=== PATIENT | male | born 1990 ===

== ENCOUNTER 2020-11-09 20:38 | Emergency (ER) | payer BC ==
--- NOTE | 2020-11-09 21:30 | EDM.PDOC ---
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 Was seen by Dr Onesimo Hudson this am, given desmopressin . Presents now with report of increased sensaton of fullness in area and discomfort with walking. No obvious swelling or bruising in alice. Left Upper Leg Pain Score (Numeric/FACES): 8 - Related Data Allergies Allergy/AdvReac Type Severity Reaction Status Date / Time No Known Allergies Allergy Verified 11/09/20 21:15 ED ROS GENERAL - Review of Systems Review Of Systems: Comprehensive ROS is negative, except as noted in HPI. ED EXAM, GENERAL - Physical Exam Exam: See Below Exam Limited By: No Limitations General Appearance: Alert, Anxious, Mild Distress Ears: Normal External Exam Nose: Normal Inspection Throat/Mouth: Normal Inspection Head: Atraumatic, Normocephalic Neck: Normal Inspection Respiratory/Chest: No Respiratory Distress, Normal Breath Sounds Cardiovascular: Regular Rate, Rhythm Back Exam: Normal Inspection Extremities: Other (tender to palpation left inguinal area and upper left thigh) Neurological: Alert, Oriented Psychiatric: Normal Affect Skin Exam: Warm, Dry, Intact, Normal Color Course - Vital Signs Last Recorded V/S: Last Vital Signs Temp 98.8 F 11/09/20 21:08 Pulse 92 11/09/20 21:59 Resp 16 11/09/20 21:59 BP 128/88 11/09/20 21:59 Pulse Ox 100 11/09/20 21:59 - Orders/Labs/Meds Labs: Laboratory Tests 11/09/20 11/09/20 11/09/20 Range/Units 21:36 21:36 21:36 WBC 10.1 H (5.0-10.0) 10^3/uL RBC 6.11 (4.6-6.2) 10^6/uL Hgb 16.9 (14.0-18.0) g/dL Hct 49.7 (40.0-54.0) % MCV 81.3 (80-100) fL MCH 27.7 (27.0-34.0) pg MCHC 34.0 (33.0-35.0) g/dL Plt Count 309 (150-450) 10^3/uL Neut % (Auto) 60.8 (42.2-75.2) % Lymph % (Auto) 28.1 (20.5-50.1) % [place] % (Auto) 9.2 H (2-8) % Eos % (Auto) 1.6 (1.0-3.0) % Baso % (Auto) 0.3 (0.0-1.0) % PT 10.3 (9.0-12.0) SEC INR 1.0 (0.9-1.2) APTT 69.3 H (22.0-34.0) SEC Sodium 139 (136-145) mmol/L Potassium 3.8 (3.5-5.1) mmol/L Chloride 101 (98-107) mmol/L Carbon Dioxide 31 (21-32) mmol/L Anion Gap 10.8 (7-13) mEq/L BUN 23 H (7-18) mg/dL Creatinine 0.88 (0.70-1.30) mg/dL Est Cr Clr Drug Dosing 111.77 mL/min Estimated GFR (MDRD) > 60 BUN/Creatinine Ratio 26.1 (No establ ref range) Glucose 97 (70-99) mg/dL Calcium 8.4 L (8.5-10.1) mg/dL Total Bilirubin 0.6 (0.2-1.0) mg/dL AST 12 L (15-37) U/L ALT 20 (16-63) U/L Alkaline Phosphatase 67 (46-116) U/L Total Protein 7.6 (6.4-8.2) g/dL Albumin 4.1 (3.4-5.0) g/dL Globulin 3.5 Albumin/Globulin Ratio 1.2 - Re-Assessments/Exams Free Text/Narrative Re-Assessment/Exam: 11/09/20 21:30 Factor VIII unavailable here. TC Dr Yanez ED accepting patient for tx. Patient refuses tx via ambulance he will go with friend to [facility] via private vehicle 11/10/20 03:12 TC to [facility] ED confirmed patient did arrive at their facility. 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
[2020-11-09 22:00] LABS: ANION GAP 10.8 mEq/L (7-13); CHLORIDE,CL 101 mmol/L (98-107); SODIUM,NA 139 mmol/L (136-145)
[2020-11-09 22:32] LABS: PTT,PARTIAL THROMBOPLSTIN TIME 69.3 SEC (22.0-34.0)
== END 2020-11-09 22:00 ==
LOC: DL.ED 20:38
DX: D66 Hereditary factor VIII deficiency (principal)
CPT/HCPCS: 36415; 80053; 85025; 85610; 85730; 99284

== ENCOUNTER 2024-10-20 23:33 | Emergency (ER) | payer BC ==
[2024-10-21] MEDS ORDERED: Sodium Chloride 0.9% 10 ML Syringe FLUSH PRN (00:28)
[2024-10-21] MEDS ORDERED: Acetaminophen 500 MG Tab PO ONE (00:30)
[2024-10-21] MEDS ORDERED: Naloxone 2 MG/2 ML Syringe IVPUSH PRN (00:32)
[2024-10-21] MEDS: Morphine 2 MG/ML SYRINGE IVPUSH ONE (00:49)
[2024-10-21 00:51] LABS: BASOPHILS PERCENT AUTO 0.1 % (0.0-1.0); EOSINOPHILS PERCENT AUTO 0.4 % (1.0-3.0); HEMATOCRIT 49.8 % (40.0-54.0); LYMPHOCYTES PERCENT AUTO 8.7 % (20.5-50.1); MEAN CORPUSCULAR HEMOGLOBIN 28.1 pg (27.0-34.0); MEAN CORPUSCULAR HGB CONC 34.1 g/dL (33.0-35.0); MEAN CORPUSCULAR VOLUME 82.5 fL (80-100); MONOCYTES PERCENT AUTO 6.4 % (2-8); NEUTROPHILS PERCENT AUTO 84.4 % (42.2-75.2); PLATELET COUNT,PLT 252 10^3/uL (150-450); RED BLOOD CELL COUNT 6.04 10^6/uL (4.6-6.2)
[2024-10-21 01:12] LABS: A/G RATIO 1.1; ALBUMIN 3.9 g/dL (3.4-5.0); ANION GAP 10.9 mEq/L (7-13); BUN/CREATININE RATIO 18.2 (No establ ref range); CREATININE 1.1 mg/dL (0.70-1.30); EST CRCL DRUG DOSING (CG) 85.41 mL/min; MAGNESIUM 1.7 mg/dL (1.8-2.4); POTASSIUM,K 3.9 mmol/L (3.5-5.1); PROTEIN TOTAL,TP 7.5 g/dL (6.4-8.2)
[2024-10-21] MEDS: Iopamidol 612 MG/ML 100 ML Bottle IVPUSH ONE (02:30)
[2024-10-21 02:33] LABS: APPEARANCE,URINE CLEAR (CLEAR); BILIRUBIN,URINE NEGATIVE (NEGATIVE); COLOR,URINE YELLOW (YELLOW); GLUCOSE,URINE NEGATIVE (NEGATIVE); KETONES,URINE NEGATIVE (NEGATIVE); LEUKOCYTE ESTERASE,URINE NEGATIVE (NEGATIVE); NITRITE,URINE NEGATIVE (NEGATIVE); OCCULT BLOOD,URINE NEGATIVE (NEGATIVE); PH,URINE 6.5 (5.0-9.0); PROTEIN,URINE NEGATIVE (NEGATIVE)
[2024-10-21] MEDS: Lactulose Soln 10 GM/15 ML 30 ML UD Cup PO ONE (05:03)
== END 2024-10-21 05:07 | disposition home or self-care (01) ==
LOC: DL.ED 23:33
DX: K52.9 Noninfective gastroenteritis and colitis, unspecified (principal); K59.09 Other constipation; Z88.6 Allergy status to analgesic agent
CPT/HCPCS: 36415; 74177; 80053; 81003; 83735; 85025; 96374; 99284; A9270; J2270; Q9967